=== PATIENT | female | born 1990 | race Asian ===

== ENCOUNTER 2016-11-22 16:53 | Emergency (ER) | payer SELFPAY ==
[~2016-11-22] VITALS: Ht 149.9 cm; Wt 57.7 kg
[2016-11-22 17:06] VITALS: BP 119/66
== END 2016-11-22 18:04 | disposition left against medical advice (07) ==
LOC: EMS 16:55
DX: O46.91 Antepartum hemorrhage, unspecified, first trimester (principal); Z3A.01 Less than 8 weeks gestation of pregnancy; Z53.21 Procedure and treatment not carried out due to patient leaving prior to being seen by health care provider

== ENCOUNTER 2019-04-19 11:29 | Emergency (ER) | payer OTHER ==
[~2019-04-19] VITALS: Ht 149.9 cm; Wt 62.3 kg
[2019-04-19] MEDS ORDERED: IPRATROPIUM BROMIDE 0.5 MG/2.5 ML NEB SOLUTION NEB ONE (13:00)
[2019-04-19] MEDS ORDERED: ALBUTEROL SULFATE 2.5 MG/0.5 ML NEB SOLUTION NEB ONE (13:00)
[2019-04-19 13:57] VITALS: BP 114/67
== END 2019-04-19 13:58 | disposition home or self-care (01) ==
LOC: EMS 11:32
DX: J06.9 Acute upper respiratory infection, unspecified (principal); J45.909 Unspecified asthma, uncomplicated; Z88.0 Allergy status to penicillin
CPT/HCPCS: 94640